=== PATIENT | male | born 1990 | race Caucasian/White ===

== ENCOUNTER 2022-01-14 23:20 | Emergency (ER) | payer SELFPAY ==
[~2022-01-14] VITALS: Ht 170.2 cm; Wt 98.9 kg
[2022-01-14 23:25] VITALS: BP 128/74
[2022-01-14] MEDS ORDERED: NACL 0.9% 1,000 ML IV ONE (23:55)
== END 2022-01-15 00:45 | disposition left against medical advice (07) ==
LOC: MED 23:20
DX: F10.129 Alcohol abuse with intoxication, unspecified (principal); R41.82 Altered mental status, unspecified
CPT/HCPCS: 99283; J7030